=== PATIENT | female | born 1945 | race African-American/Black ===

== ENCOUNTER 2017-05-16 09:36 | Emergency (ER) | payer MEDICARE | END 2017-05-16 10:24 | disposition home or self-care (01) | LOC: NAV ERS 09:36 | DX: J06.9 Acute upper respiratory infection, unspecified (principal); E03.9 Hypothyroidism, unspecified; K21.9 Gastro-esophageal reflux disease without esophagitis; I10 Essential (primary) hypertension; Z79.899 Other long term (current) drug therapy | CPT/HCPCS: 99283 ==

== ENCOUNTER 2020-01-28 08:15 | Emergency (ER) | payer MEDICARE ==
[2020-01-28] MEDS ORDERED: Lidocaine Viscous Sol 2% 15 ml UD Cup ONE (08:44)
[2020-01-28] MEDS ORDERED: Mag-Al Plus 1200 MG/1200 MG/120 MG/30 ML UDCUP ONE (08:44)
[2020-01-28] MEDS ORDERED: Aspirin Chewable 81 MG TAB ONE (09:14)
--- NOTE | 2020-01-28 09:31 | RAD ---
PORTABLE CHEST 1 VIEW: Date: 01/28/2020 Time: 0926 hours HISTORY: Chest pain, epigastric pain. COMPARISON: 08/12/2015. FINDINGS: The heart size is enlarged. The aorta is tortuous. The lungs are well expanded without focal areas of consolidation, pneumothoraces, judith pulmonary edema, or pleural effusions. Surgical clips overlying the lower neck and upper mediastinum are again noted. IMPRESSION: No acute process. POS: AH
[2020-01-28 10:05] LABS: Bilirubin Negative (Negative); Blood, Urine Negative (Negative); Clarity Clear (Clear); Glucose, Urine (Dipstick) Negative (Negative); Ketone, Urine Negative (Negative); Leukocyte Negative (Negative); Nitrite Negative (Negative); Protein, Urine (Dipstick) 100 mg/dL (Neg-Trace); Specific Gravity, Urine 1.015 (1.005-1.030); pH, Urine 7.5 (5.0-9.0)
[2020-01-28 10:06] LABS: Mean Corpuscular HGB CONC 30.1 g/dL (32.0-36.0); Mean Corpuscular Hemoglobin 26.1 pg (27.0-31.0); Mean Corpuscular Volume 86.7 fL (78.0-98.0); RBC Distribution Width 12.3 % (11.5-14.5)
[2020-01-28 10:07] LABS: %Lymphocytes 15.8 % (21.0-51.0); %Neutrophils 66.1 % (42.0-75.0); Manual Diff?? NO; Mean Platelet Volume 10.4 fL (7.4-10.4); Platelet Count 184 thou/uL (130-400)
[2020-01-28 10:08] LABS: %Basophils 2.5 % (0.0-1.0); %Eosinophils 1.7 % (0.0-10.0); %Monocytes 13.9 % (0.0-10.0)
[2020-01-28 10:09] LABS: #Basophils 0.2 thou/uL (0.0-0.2); #Eosinphils 0.1 thou/uL (0.0-0.7); #Lymphocytes 0.9 thou/uL (1.20-3.40); #Monocytes 0.8 thou/uL (0.11-0.59)
[2020-01-28 10:11] LABS: Bacteria/HPF None Seen HPF (None Seen); RBC/HPF 0-3 HPF (0-3); Squamous Epithelial 0-3 HPF (0-3); WBC/HPF 0-3 HPF (0-3)
[2020-01-28 10:12] LABS: Mucous/LPF Few LPF (<2+)
[2020-01-28 10:15] LABS: Carbon Dioxide 23 mmol/L (23-31); Chloride 102 mmol/L (98-107); Potassium 4.5 mmol/L (3.5-5.1); Sodium 134 mmol/L (136-145)
[2020-01-28 10:16] LABS: BUN (Urea Nitrogen) 21 mg/dL (9.8-20.1); Bilirubin, Total 0.5 mg/dL (0.2-1.2); Calc. Creatinine Clearance 0 mL/min (70-130); Calcium 9.3 mg/dL (7.8-10.44); Estimated GFR-MDRD 46; Glucose 109 mg/dL (83-110)
[2020-01-28 10:18] LABS: Albumin 4.2 g/dL (3.4-4.8); Globulin 3.1 g/dL (2.4-3.5); Protein, Total 7.3 g/dL (5.8-8.1)
[2020-01-28 10:19] LABS: ALT (SGPT) 16 U/L (8-55); AST (SGOT) 16 U/L (5-34); Alkaline Phosphatase 113 U/L (40-110); Lipase 30 U/L (8-78)
[2020-01-28 10:20] LABS: Anion Gap 11 mmol/L (10-20)
[2020-01-28] MEDS ORDERED: Sodium Chloride 0.9% 1,000 ML ONE (10:28)
--- NOTE | 2020-01-28 12:20 | CT ---
CT OF THE ABDOMEN AND PELVIS WITHOUT IV CONTRAST INDICATION: Epigastric and upper abdominal pain COMPARISON: None FINDINGS: The lack of IV contrast limits evaluation of the solid organs of the abdomen and pelvis. ABDOMEN: Lung bases: Clear Liver: No focal lesion. Gallbladder: Surgically absent Pancreas: Normal. Adrenal glands: Normal. Spleen: Normal. Kidneys and ureters: There is exophytic hyperdense lesion measuring 1.4 cm off the inferior pole righ t kidney. No hydronephrosis is evident. Vasculature: There are moderate vascular calcifications seen involving the visualized vasculature. Lymph nodes:No lymphadenopathy. Free fluid in abdomen:No free fluid is evident. PELVIS: Small and large bowel: Normal Appendix:Not definitely seen Bladder: Normal. Rectal and perirectal soft tissues:Normal. Reproductive structures: Uterus and left adnexa are surgically absent. There is a 1.9 cm calcificatio n within the right adnexa which is nonspecific. Free fluid in pelvis: No free fluid is evident. Lymphadenopathy pelvis: No lymphadenopathy is evident. Osseous structures: No acute osseous abnormality. No destructive osteolytic or osteoblastic lesion i s identified. There is scattered degenerative and osteoarthritic changes. Soft tissues:Normal. IMPRESSION: 1. No definite CT especially the patient's abdominal pain. 2. Hyperdense right renal lesion requires nonemergent follow-up. Recommend renal ultrasound for furth er characterization. 3. Right adnexal calcination may reflect a dystrophic right ovarian calcination or possibly a small t eratoma.
== END 2020-01-28 13:05 | disposition home or self-care (01) ==
LOC: NAV ERS 08:15
DX: K29.70 Gastritis, unspecified, without bleeding (principal); R07.89 Other chest pain; D64.9 Anemia, unspecified; N28.9 Disorder of kidney and ureter, unspecified; E86.9 Volume depletion, unspecified; N28.89 Other specified disorders of kidney and ureter; E03.9 Hypothyroidism, unspecified; K21.9 Gastro-esophageal reflux disease without esophagitis; E78.5 Hyperlipidemia, unspecified; I10 Essential (primary) hypertension; Z79.899 Other long term (current) drug therapy
CPT/HCPCS: 71045; 74176; 80053; 81003; 81015; 83690; 84484; 85025; 93005; J7050

== ENCOUNTER 2022-03-29 09:02 | Emergency (ER) | payer MEDICAID, MEDICARE | END 2022-03-29 09:53 | disposition home or self-care (01) | LOC: NAV ERS 09:02 | DX: J30.9 Allergic rhinitis, unspecified (principal); J01.90 Acute sinusitis, unspecified; E03.9 Hypothyroidism, unspecified; K21.9 Gastro-esophageal reflux disease without esophagitis; E78.5 Hyperlipidemia, unspecified | CPT/HCPCS: 99283 ==

== ENCOUNTER 2022-06-10 08:56 | Emergency (ER) | payer OTHER, MEDICAID, MEDICARE ==
[2022-06-10] MEDS ORDERED: Sodium Chloride 0.9% 1,000 ML ONE (09:29)
[2022-06-10] MEDS ORDERED: Acetaminophen 500 MG TAB ONE (09:29)
[2022-06-10 09:54] LABS: #Basophils 0.1 thou/uL (0.0-0.2); #Eosinphils 0.1 thou/uL (0.0-0.7); #Lymphocytes 0.5 thou/uL (1.20-3.40); #Monocytes 0.7 thou/uL (0.11-0.59); #Neutrophils 8.2 thou/uL (1.40-6.50); %Basophils 1.1 % (0.0-1.0); %Eosinophils 1.1 % (0.0-10.0); %Neutrophils 85.8 % (42.0-75.0); Hemoglobin 11.8 g/dL (12.0-16.0); Mean Corpuscular HGB CONC 30.9 g/dL (32.0-36.0); Mean Corpuscular Hemoglobin 27.1 pg (27.0-31.0); Mean Corpuscular Volume 87.7 fl (78.0-98.0); Mean Platelet Volume 10.5 fL (7.4-10.4); Platelet Count 165 10x3/uL (130-400); RBC Distribution Width 13.1 % (11.5-14.5); Red Blood Cell (RBC) Count 4.33 mill/uL (4.20-5.40); White Blood Cell (WBC) Count 9.5 10x3/uL (4.8-10.8)
[2022-06-10 10:00] LABS: ALT (SGPT) 12 U/L (8-55); AST (SGOT) 16 U/L (5-34); Albumin 4.5 g/dL (3.4-4.8); Alkaline Phosphatase 111 U/L (40-110); Anion Gap 14 mmol/L (10-20); BUN (Urea Nitrogen) 26 mg/dL (9.8-20.1); Bilirubin, Total 0.5 mg/dL (0.2-1.2); Calc. Creatinine Clearance 0 mL/min (70-130); Calcium 9.9 mg/dL (7.8-10.44); Carbon Dioxide 20 mmol/L (23-31); Chloride 106 mmol/L (98-107); Estimated GFR 38; Globulin 3.3 g/dL (2.4-3.5); Glucose 96 mg/dL (83-110); Potassium 4.4 mmol/L (3.5-5.1); Protein, Total 7.8 g/dL (5.8-8.1); Sodium 136 mmol/L (136-145)
[2022-06-10] MEDS ORDERED: diphenhydrAMINE 50 MG/ML VIAL ONE (10:27)
[2022-06-10 10:35] LABS: Bilirubin Negative (Negative); Blood, Urine Trace (Negative); Clarity Clear (Clear); Glucose, Urine (Dipstick) Negative (Negative); Ketone, Urine Negative (Negative); Leukocyte Negative (Negative); Nitrite Negative (Negative); Protein, Urine (Dipstick) 100 mg/dL (Neg-Trace); Specific Gravity, Urine 1.025 (1.005-1.030)
[2022-06-10 10:49] LABS: Bacteria/HPF None Seen HPF (None Seen); RBC/HPF 0-3 HPF (0-3); Squamous Epithelial None Seen HPF (0-3); WBC/HPF None Seen HPF (0-3)
== END 2022-06-10 11:24 | disposition home or self-care (01) ==
LOC: NAV ERS 08:56
DX: R09.82 Postnasal drip (principal); R51.9 Headache, unspecified; E03.9 Hypothyroidism, unspecified; K21.9 Gastro-esophageal reflux disease without esophagitis; E78.5 Hyperlipidemia, unspecified; Z79.899 Other long term (current) drug therapy
CPT/HCPCS: 80053; 81003; 81015; 85025; 87081; 87430; 87804; 96374; J1200; J7050